=== PATIENT | female | born 1945 | race Caucasian/White ===

== ENCOUNTER → 2016-10-12 | Outpatient (CLI) | payer MEDICARE, OTHER ==
--- NOTE | 2016-10-12 15:12 | REPMRS ---
Patient History The patient states she had a clinical breast exam in 12/2015. Family history of breast cancer in daughter at age 33. Benign excisional biopsy of the left breast, 1972. Digital Woman Screen Mammo: October 12, 2016 - Exam #: [id number] Bilateral CC and MLO view(s) were taken. Technologist: Bel Doran, Technologist Prior study comparison: July 20, 2015, digital woman screen mammo performed at [facility] to [facility]. June 25, 2013, digital woman screen mammo performed at [facility] to [facility]. FINDINGS: The breast tissue is extremely dense which could obscure a lesion on mammography. There is no evidence of cancer on this mammogram. No significant changes when compared with prior studies. ASSESSMENT: BI-RADS/ACR category 2 mammogram. Benign finding(s). Recommendation Routine screening mammogram of both breasts in 1 year (for women over age 40). This mammogram was interpreted with the aid of an FDA-approved computer-aided dectection system. Electronically Signed By: Buster Hernandez MD 10/12/16 [id number]
== END ==
LOC: M WHC 12:42
PROVIDERS: ATTEND Internal Medicine
DX: Z12.31 Encounter for screening mammogram for malignant neoplasm of breast (principal); Z80.3 Family history of malignant neoplasm of breast; R92.2 Inconclusive mammogram

== ENCOUNTER → 2017-09-27 | Outpatient (REF) | payer MEDICARE, OTHER ==
[2017-09-27 12:38] LABS: FOLATE 19.4 NG/ML; VITAMIN B12 LEVEL 204 PG/ML
== END ==
LOC: M LAB REF 11:54
DX: R41.3 Other amnesia (principal)
CPT/HCPCS: 82746

== ENCOUNTER → 2018-12-17 | Outpatient (REF) | payer MEDICARE, OTHER | LOC: M LAB REF 12:22 | PROVIDERS: ATTEND Internal Medicine | DX: R41.3 Other amnesia (principal) ==

== ENCOUNTER → 2020-06-12 | Outpatient (REF) | payer MEDICARE, OTHER | LOC: M LAB REF 17:25 | PROVIDERS: ATTEND Dermatology | DX: D17.30 Benign lipomatous neoplasm of skin and subcutaneous tissue of unspecified sites (principal) ==

== ENCOUNTER 2020-08-17 16:12 | Emergency (ER) | payer MEDICARE, OTHER ==
[~2020-08-17] VITALS: Ht 157.5 cm; Wt 62.2 kg
[2020-08-17] MEDS ORDERED: FLUO10CA16 (16:25)
[2020-08-17 17:29] LABS: BASO % 0.5 % (0.0-1.0); EOS % 0.4 % (0.0-3.0); HEMATOCRIT 41.3 % (36.0-47.0); HEMOGLOBIN 14.2 g/dl (12.0-15.5); LYMPH # 1.2 10^3/uL (1.5-5.0); LYMPH % 15.5 % (24.0-44.0); MEAN CORPUSCULAR HEMOGLOBIN 32.3 pg (27.0-33.0); MEAN CORPUSCULAR HGB CONC 34.4 g/dl (32.0-36.5); MEAN CORPUSCULAR VOLUME 93.9 fl (80.0-96.0); MONO # 0.4 10^3/uL (0.0-0.8); MONO % 5.9 % (2.0-8.0); NEUTROPHILS # 5.8 10^3/uL (1.5-8.5); NEUTROPHILS % 77.2 % (36.0-66.0); PLATELET COUNT, AUTOMATED 210 10^3/uL (150-450); WHITE BLOOD COUNT 7.5 10^3/uL (4.0-10.0)
[2020-08-17 18:23] VITALS: BP 135/80
--- NOTE | 2020-08-17 18:27 | REPVR ---
PROCEDURE INFORMATION: Exam: CT Head Without Contrast Exam date and time: 08/17/2020 5:39 PM Age: 75 years old Clinical indication: Other: Vertigo TECHNIQUE: Imaging protocol: Computed tomography of the head without contrast. Radiation optimization: All CT scans at this facility use at least one of these dose optimization techniques: automated exposure control; mA and/or kV adjustment per patient size (includes targeted exams where dose is matched to clinical indication); or iterative reconstruction. COMPARISON: No relevant prior studies available. FINDINGS: Brain: No intracranial mass, mass effect or midline shift. No acute intracranial hemorrhage. No CT evidence of acute cortical infarct. Cerebral ventricles: Ventricles, cisterns, and sulci are normal in size for age. Bones/joints: No calvarial fracture or destructive process. Paranasal sinuses: Imaged paranasal sinuses are normally aerated. Mastoid air cells: Mastoid air cells and middle ear structures are normally aerated. Orbital cavity: Imaged orbits are unremarkable. Soft tissues: No focal extracranial soft tissue swelling. IMPRESSION: No acute or concerning focal intracranial abnormality. Electronically signed by: Christopher Lares On 08/17/2020 18:27:05 PM
[2020-08-17] MEDS ORDERED: MECL1TAB31 PO (18:48)
--- NOTE | 2020-08-17 22:19 | ECGEPIP ---
[facility] - ED Test Date: 2020-08-17 Pat Name: NIXON ZHANG Department: Room: - Gender: Female Data Visualization Developer: VU : 1945 Requested By: IVONNE Maria Order Number: [id number] Reading MD: Ivonne Sanon Measurements Intervals [place] Rate: 70 P: 53 CA: 174 QRS: -14 QRSD: 82 T: 65 QT: 392 QTc: 423 Interpretive Statements Normal sinus rhythm Comparison tracing not on file Electronically Signed on 08-17-2020 22:19:02 EDT by Ivonne Sanon
== END 2020-08-17 19:12 | disposition home or self-care (01) ==
LOC: M ED 16:12
DX: H81.10 Benign paroxysmal vertigo, unspecified ear (principal); F32.9 Major depressive disorder, single episode, unspecified; Z88.0 Allergy status to penicillin

== ENCOUNTER → 2020-12-09 | Outpatient (REF) | payer MEDICARE, OTHER ==
[~2020-12-09] MED LIST: FLUO10CA16; MECL1TAB31 PO
[2020-12-09 13:54] LABS: FOLATE > 24.0 NG/ML; VITAMIN B12 LEVEL 333 PG/ML
== END ==
LOC: M LAB REF 12:25
PROVIDERS: ATTEND Internal Medicine
DX: R41.3 Other amnesia (principal)

== ENCOUNTER → 2023-01-14 | Outpatient (CLI) | payer MEDICARE, OTHER ==
[~2023-01-14] MED LIST changes: -FLUO10CA16; +FLUO10CA18
== END ==
LOC: M RAD 10:43
PROVIDERS: ATTEND Physician Assistant Medical
DX: R07.81 Pleurodynia (principal)

== ENCOUNTER → 2023-12-11 | Outpatient (REF) | payer MEDICARE, OTHER ==
[~2023-12-11] MED LIST changes: +FLUO-290; -FLUO10CA18; +MECL-209 PO; -MECL1TAB31 PO
[2023-12-11 14:18] LABS: VITAMIN B12 LEVEL 267 PG/ML (211-911)
[2023-12-11 14:21] LABS: FOLATE > 24.0 NG/ML (>5.4)
== END ==
LOC: M LAB REF 12:31
PROVIDERS: ATTEND Internal Medicine
DX: G31.84 Mild cognitive impairment of uncertain or unknown etiology (principal)

== ENCOUNTER → 2023-12-15 | Outpatient (CLI) | payer MEDICARE, OTHER | LOC: M PLARAD 12:36 | PROVIDERS: ATTEND Internal Medicine | DX: I67.82 Cerebral ischemia (principal) ==

== ENCOUNTER → 2025-03-03 | Outpatient (CLI) | payer MEDICARE, OTHER ==
[~2025-03-03] MED LIST changes: +PROHANCE 279.3MG/ML 15ML VIAL As Ordered ONE
== END ==
LOC: M RAD 10:51
PROVIDERS: ATTEND Internal Medicine
DX: H53.2 Diplopia (principal)
CPT/HCPCS: 70553; A9576